=== PATIENT | male | born 1965 | race Two or more races ===

== ENCOUNTER 2024-08-26 03:36 | Emergency (ER) | payer OTHER ==
[~2024-08-26] VITALS: Ht 165.1 cm; Wt 86.2 kg
[2024-08-26 05:22] VITALS: BP 149/99; TEMP 99.1; O2SAT 96
== END 2024-08-26 05:26 ==
LOC: ER 03:38
DX: F41.9 Anxiety disorder, unspecified (principal); I10 Essential (primary) hypertension; E11.9 Type 2 diabetes mellitus without complications